=== PATIENT | female | born 1980 | race Caucasian/White ===

== ENCOUNTER 2017-12-04 17:51 | Emergency (ER) | payer SELFPAY ==
--- NOTE | 2017-12-04 18:20 | EDM.PDOC ---
ED HPI GENERAL MEDICAL PROBLEM - General Chief Complaint: General Stated Complaint: MEDICAL CLEARANCE Time Seen by Provider: 12/04/17 18:13 Source of Information: Reports: Patient History Limitations: Reports: No Limitations - History of Present Illness INITIAL COMMENTS - FREE TEXT/NARRATIVE: HISTORY AND PHYSICAL: History of present illness: Patient is a 36-year-old female who presents to the emergency room by law enforcement requesting a medication refill. Patient states that she is type II diabetic and had diabetic neuropathy. Reports she does not have access to her metformin, gabapentin, and tramadol - as law enforcement was unable to get ahold of her to bring up her medications. She has no current systemic complaints. She denies any fever, chills, chest pain or shortness of breath. Denies any abdominal pain, nausea, vomiting, diarrhea or constipation. Prior to today's encounter, patient reports that she is compliant with her medications. Review of systems: As per history of present illness and below otherwise all systems reviewed and negative. Past medical history: As per history of present illness and as reviewed below otherwise noncontributory. Surgical history: As per history of present illness and as reviewed below otherwise noncontributory. Social history: No reported history of drug or alcohol abuse. Family history: As per history of present illness and as reviewed below otherwise noncontributory. Physical exam: General: Well-nourished 36-year-old female. Alert and oriented. Nontoxic appearing and in no acute distress. HEENT: Atraumatic, normocephalic, pupils equal and reactive bilaterally, negative for conjunctival pallor or scleral icterus, mucous membranes moist, throat clear, neck supple, nontender, trachea midline. No drooling or trismus noted. No meningeal signs Lungs: Clear to auscultation, breath sounds equal bilaterally, chest nontender. Heart: S1S2, regular rate and rhythm without overt murmur Abdomen: Soft, nondistended, nontender. Negative for masses or hepatosplenomegaly. Negative for costovertebral tenderness. Pelvis: Stable nontender. Genitourinary: Deferred. Rectal: Deferred. Skin: Intact, warm, dry. No lesions or rashes noted. Extremities: Atraumatic, negative for cords or calf pain. Neurovascular unremarkable. Neuro: Awake, alert, oriented. Cranial nerves II through XII unremarkable. Cerebellum unremarkable. Motor and sensory unremarkable throughout. Exam nonfocal. Notes: Vital signs are stable. Bedside glucose is 154. She offers no other current complaints or concerns. Denies any need for further evaluation other than the medication refill. Encouraged her to follow up with her primary caregiver in the next couple days. She voices understanding and is agreeable to plan of care. Denies any further questions or concerns at this time. Diagnostics: Bedside blood glucose Therapeutics: None Prescription: Metformin 500mg (#30) Impression: Encounter for medication refill Plan: 1. Please take your medication as directed. 2. Follow-up with your primary care provider in the next 1-2 days. Return to the ED as needed and as discussed. Definitive disposition and diagnosis as appropriate pending reevaluation and review of above. Onset: Today Calves Pain Score (Numeric/FACES): 5 - Related Data Allergies Allergy/AdvReac Type Severity Reaction Status Date / Time aspirin Allergy Airway Verified 12/04/17 18:18 Tightness Penicillins Allergy Airway Verified 12/04/17 18:18 Tightness Home Meds: Home Meds Gabapentin [Neurontin] 100 mg PO TID 12/04/17 [History] metFORMIN [Glucophage XR] 500 mg PO BID 12/04/17 [History] traMADol [Ultram] 50 mg PO BID 12/04/17 [History] ED ROS GENERAL - Review of Systems Review Of Systems: ROS reveals no pertinent complaints other than HPI. ED EXAM, GENERAL - Physical Exam Exam: See Below (See dictation) Course - Vital Signs Last Recorded V/S: Last Vital Signs Temp 97.8 F 12/04/17 18:14 Pulse 86 12/04/17 18:14 Resp 12 12/04/17 18:14 BP 152/100 H 12/04/17 18:14 Pulse Ox 98 12/04/17 18:14 - Orders/Labs/Meds Labs: Laboratory Tests 12/04/17 Range/Units 18:17 POC Glucose 154 H (60-110) mg/dL Departure - Departure Time of Disposition: 18:25 Disposition: Home, Self-Care 01 Clinical Impression: Medication refill, History of type 2 diabetes mellitus - Discharge Information Instructions: Medicine Refill at the Emergency Department Referrals: PCP,None [Primary Care Provider] - Forms: ED Department Discharge Additional Instructions: The following information is given to patients seen in the emergency department who are being discharged to home. This information is to outline your options for follow-up care. We provide all patients seen in our emergency department with a follow-up referral. The need for follow-up, as well as the timing and circumstances, are variable depending upon the specifics of your emergency department visit. If you don't have a primary care physician on staff, we will provide you with a referral. We always advise you to contact your personal physician following an emergency department visit to inform them of the circumstance of the visit and for follow-up with them and/or the need for any referrals to a consulting specialist. The emergency department will also refer you to a specialist when appropriate. This referral assures that you have the opportunity for follow-up care with a specialist. All of these measure are taken in an effort to provide you with optimal care, which includes your follow-up. Under all circumstances we always encourage you to contact your private physician who remains a resource for coordinating your care. When calling for follow-up care, please make the office aware that this follow-up is from your recent emergency room visit. If for any reason you are refused follow-up, please contact the [facility] Emergency Department at and asked to speak to the emergency department charge nurse. [facility] [address] [place] [id number] 1. Please take your medication as directed. 2. Follow-up with your primary care provider in the next 1-2 days. Return to the ED as needed and as discussed.
== END 2017-12-04 18:45 ==
LOC: MW.ED 17:51
DX: Z76.0 Encounter for issue of repeat prescription (principal); E11.9 Type 2 diabetes mellitus without complications; Z88.0 Allergy status to penicillin
CPT/HCPCS: 82962; 99282